=== PATIENT | female | born 1990 | race Caucasian/White ===

== ENCOUNTER 2016-05-17 14:04 | Emergency (ER) | payer MEDICAID, MEDICARE ==
[~2016-05-17] VITALS: Ht 154.9 cm; Wt 65.8 kg
[2016-05-17 15:14] VITALS: BP 124/55
--- NOTE | 2016-05-17 15:54 | NUR ---
Patient ambulated to bed 02.
--- NOTE | 2016-05-17 16:00 | NUR ---
25/F BIB FRIEND C/O FLU-LIKE S/SX X2 DAYS; N/V, ABDOMINAL CRAMPING, RIVERA, BODYACHES. PT DENIES ANY OTHER MEDICAL HX. SKIN WARM, DRY, INTACT. LUNG SOUNDS CLR. PT AAOX3. PT APPEARS TIRED. ER AWARE.
--- NOTE | 2016-05-17 16:07 | NUR ---
Dr. Gomes evaluating patient at bedside.
[2016-05-17] MEDS ORDERED: ONDANSETRON 4 MG/2 ML VIAL IVP ONE (16:10)
[2016-05-17] MEDS ORDERED: NACL 0.9% 1,500 ML IV ONE (16:10)
[2016-05-17] MEDS ORDERED: KETOROLAC 30 MG/ML VIAL IVP ONE (16:10)
--- NOTE | 2016-05-17 16:30 | NUR ---
PT NASAL SWAB DONE FOR FLU. URINE CUP PROVIDED FOR SAMPLE.
--- NOTE | 2016-05-17 17:40 | NUR ---
PT FINALLY PROVIDED URINE. LAB NOTIFIED. JOHNATHON MILLS MADE AWARE.
[2016-05-17 18:51] VITALS: BP 120/59
--- NOTE | 2016-05-17 18:52 | NUR ---
Patient discharged with v/s stable. Written and verbal after care instructions given and explained. Patient alert, oriented and verbalized understanding of instructions. Ambulatory with steady gait. All questions addressed prior to discharge. ID band removed. Patient advised to follow up with PMD. Rx of MOTRIN, ZOFRAN, CODEINE/PROMETHAZINE given. Patient educated on indication of medication including possible reaction and side effects. Opportunity to ask questions provided and answered.
== END 2016-05-17 18:52 | disposition home or self-care (01) ==
LOC: MED 14:22
DX: J06.9 Acute upper respiratory infection, unspecified (principal); R11.2 Nausea with vomiting, unspecified
CPT/HCPCS: 36415; 71010; 80053; 81001; 81025; 83690; 85025; 87086; 87804; 96361; 96374; 96375; 99285; J1885; J2405; J7030